=== PATIENT | male | born 1995 | race Hispanic/Latino ===

== ENCOUNTER 2025-06-09 18:07 | Emergency (ER) | payer SELFPAY ==
[~2025-06-09] VITALS: Ht 172.7 cm; Wt 120.2 kg
--- NOTE | 2025-06-09 18:40 | EKG ---
[facility] Test Date: 2025-06-09 Test Time: 18:36:51 Pat Name: KAELA HAWTHORNE Department: [facility] Room: Gender: M [employer]: [facility] : 1995 Requested By: JENNIFER HALL Order Number: [id number] Reading MD: Ziggy Archer Measurements Intervals [place] Rate: 118 P: 79 MD: 187 QRS: 28 QRSD: 89 T: 24 QT: 314 QTc: 441 Interpretive Statements Sinus tachycardia No previous ECG available for comparison Electronically Signed On 06-09-2025 19:01:26 CDT by Ziggy Archer Please click the below link to view image of tracing.
--- NOTE | 2025-06-09 18:45 | ERN ---
ED Note History of Present Illness Stated Complaint: BODY NUMBNESS,SOB,ABD PAIN Chief Complaint: Anxiety/Panic Attack Time Seen by MD: 18:09 Time Seen by Midlevel: 18:09 Dictation: The patient is a 29-year-old male with a history of hypertension who presents to the emergency department with multiple complaints of upper abdominal pain, shortness of breath, generalized tingling onset 5:00 p.m.. Patient denies any nausea, vomiting, diarrhea, fevers, constipation. Reports last bowel movement t his morning. Patient reports feeling very anxious. Allergies: Coded Allergies: No Known Drug Allergies (Unverified Allergy, Unknown, 06/09/25) Past Medical History Past Medical History: Anxiety Surgical History: None RN Note Reviewed/Agreed w/PFSH: Yes Review of System Dictation Constitutional: Negative for fever,chills, and weight loss Eyes: Negative for injury, pain,redness, and discharge ENT: Negative for injury,pain or swelling Cardiovascular: Negative for chest pain, palpitations, and edema Respiratory: Negative for cough, and wheezing, positive for shortness of breath Abdomen/GI: Negative for , nausea, vomiting, diarrhea, and constipation positive for abdominal pain Back: Negative for injury and pain : Negative for injury, bleeding and discharge MS/Extremity: Negative for injury and deformity Skin: Negative for rash, and discoloration Neuro: Negative for headache, weakness, numbness, tingling, and seizure Psych: Negative for suicide ideation, homicidal ideation, and hallucinations Initial Vital Sign VS Vital Signs Date Time Temp Pulse Resp B/P (MAP) Pulse Ox O2 Delivery O2 Flow Rate FiO2 06/09/25 18:30 98.6 92 18 154/84 98 Physical Exam Dictation Vital Signs reviewed General Appearance: Alert, oriented x 3, no acute distress, well developed, nourished. Head and Face: non-traumatic. Eyes: PERRL, pink conjunctivas, eyelid no trauma, anterior chamber with arcus senilis. Ears: Pinnas intact and no signs of trauma or erythema ear canals clear and no discharge TM no erythema Nose: No discharge, no bleeding. Oropharynx: Mouth normal, tongue pink. pharynx clear,no erythema, tonsils no exudates, no abscesses noted, mucous membrane moist Neck: Supple, non-tender, no thyromegaly, no masses, no JVD, no bruits Breast:Deferred Chest:No tenderness, no crepitus, no paradoxical movement, no retractions Lungs:Clear, well-ventilated, symmetric, no rales, no wheezing, no rhonchi, no stridor, good breath sounds bilaterally Heart: Regular rate, regular rhythm, no murmur, no gallops Vascular: no peripheral edema, Abdomen: Soft, positive bowel sounds, nondistended, no guarding, nontender, no rebound, no masses no hepatomegaly, no splenomegaly, no Saba's sign, no hernias. Rectal: Deferred Genital: Deferred Neurological: Normal speech, motor function intact, sensory function intact Musculoskeletal: Neck nontender, full range of motion, back nontender, full range of motion, Extremities: nontender, full range of motion Skin: Color pink, dry, no turgor, no rash, no lacerations, no abrasions, no contusions. Lymphatic: Deferred Results (Laboratory/Radiology) Laboratory/Radiology Laboratory Tests Test 06/09/25 18:40 06/09/25 18:46 Urine Color YELLOW (YELLOW) Urine Appearance CLEAR (CLEAR) Urine pH 5.5 (5.0-8.0) Urine Specific [place] 1.030 (1.001-1.031) Urine Protein 20 mg/dL (NEGATIVE) H Urine Glucose (UA) NEGATIVE mg/dL (NEGATIVE) Urine Ketones NEGATIVE mg/dL (NEGATIVE) Urine Occult Blood NEGATIVE (NEGATIVE) Urine Nitrate NEGATIVE (NEGATIVE) Urine Bilirubin NEGATIVE mg/dL (NEGATIVE) Urine Urobilinogen 0.2 mg/dL (0.2-1.0) Urine Leukocyte Esterase NEGATIVE Chris/uL Urine RBC 2-5 /HPF (0-1) H Urine WBC 2-5 /HPF (0-1) H Urine Squamous Epithelial Cells RARE /HPF (0-2) Urine Bacteria None /HPF (None Seen) Urine Opiates Screen NEGATIVE (NEGATIVE) Urine Barbiturates Screen NEGATIVE (NEGATIVE) Urine Phencyclidine Screen NEGATIVE (NEGATIVE) Urine Amphetamines Screen NEGATIVE (NEGATIVE) Urine Benzodiazepines Screen NEGATIVE (NEGATIVE) Urine Cocaine Screen NEGATIVE (NEGATIVE) Urine Marijuana (THC) Screen NEGATIVE (NEGATIVE) White Blood Count 13.4 K/uL (4.8-10.8) H Red Blood Count 4.85 MIL/uL (4.50-6.20) Hemoglobin 14.5 g/dL (14.0-18.0) Hematocrit 41.5 % (42-54) L Mean Corpuscular Volume 85.6 fL (79-99) Mean Corpuscular Hemoglobin 29.9 pg (27.0-33.0) Mean Corpuscular Hemoglobin Concent 34.9 g/dL (32.0-36.0) Red Cell Distribution Width 13.2 % (11.0-15.5) Platelet Count 335 K/uL (130-400) Mean Platelet Volume 11.6 fL (7.5-10.5) H Immature Granulocyte % (Auto) 0.4 % (0-1) Neutrophils (%) (Auto) 66.0 % (40.0-77.0) Lymphocytes (%) (Auto) 26.8 % (21.0-51.0) Monocytes (%) (Auto) 5.7 % (3.0-13.0) Eosinophils (%) (Auto) 0.7 % (0.0-8.0) Basophils (%) (Auto) 0.4 % (0.0-5.0) Neutrophils # (Auto) 8.9 K/uL (1.8-7.7) H Lymphocytes # (Auto) 3.6 K/uL (1.0-4.8) Monocytes # (Auto) 0.8 K/uL (0.1-1.0) Eosinophils # (Auto) 0.10 K/uL (0.00-0.70) Basophils # (Auto) 0.06 K/uL (0.00-0.20) Absolute Immature Granulocyte (auto 0.05 K/uL (0-1) Nucleated Red Blood Cells 0.0 % (0.0-0.19) Sodium Level 138 mmol/L (136-145) Potassium Level 3.3 mmol/L (3.5-5.1) L Chloride Level 103 mmol/L (101-111) Carbon Dioxide Level 27 mmol/L (21-32) Blood Urea Nitrogen 14 mg/dL (7-18) Creatinine 0.8 mg/dL (0.5-1.3) Glomerular Filtration Rate Calc 123 mL/min (>90) Random Glucose 127 mg/dL (70-105) H Total Calcium 9.4 mg/dL (8.5-10.1) Total Bilirubin 0.3 mg/dL (0.2-1.0) Direct Bilirubin 0.1 mg/dL (0.0-0.3) Aspartate Amino Transf (AST/SGOT) 21 U/L (10-37) Alanine Aminotransferase (ALT/SGPT) 33 U/L (12-78) Alkaline Phosphatase 91 U/L (50-136) Total Creatine Kinase 443 U/L (21-232) *H Troponin I High Sensitivity < 4 ng/L (4-75) L Total Protein 8.5 g/dL (6.0-8.3) H Albumin 4.2 g/dL (3.5-5.0) Lipase 23 U/L (16-77) REASON: sob ORDERING PHYSICIAN: JENNIFER HALL PROCEDURE: CXR1VW - CHEST 1VW EXAM: CR Chest, 1 View. CLINICAL HISTORY: sob COMPARISON: None provided. FINDINGS: LUNGS: The lungs show no infiltrate or other acute finding. PLEURAL SPACES: No pleural effusion or pneumothorax. MEDIASTINUM: The cardiomediastinal silhouette is within normal limits. BONES: No aggressive appearing osseous lesion seen. IMPRESSION: No acute cardiopulmonary pathology is evident. Labs Reviewed?: Yes EKG: (+) rhythm (Sinus tachycardia) EKG Comment: Date:06/09/2025 Time:1836 Ventricular rate:118 [place] interval:187 QRS duration:89 QT/QTc:314/441 EKG interpretation: Sinus tachycardia Reviewed by ED Attending no STEMI ED Course ED Course Orders Procedure Category Date Status Time Cbc With Differential LAB 06/09/25 Complete 18:28 Troponin I High LAB 06/09/25 Complete Sensitivity 18:28 Urinalysis Profile LAB 06/09/25 Complete 18:28 12 Lead Ekg Tracing- EKG 06/09/25 Resulted Technical 18:28 Creatine Kinase, Total LAB 06/09/25 Complete 18:28 Chest 1vw RAD 06/09/25 Resulted 18:28 Lipase LAB 06/09/25 Complete 18:28 Basic Metabolic Panel LAB 06/09/25 Complete 18:28 Hepatic Function Panel LAB 06/09/25 Complete 18:28 Hydroxyzine 25mg Tab PHA 06/09/25 Complete (Atarax 25mg Tab) 18:30 Drug Screen Urine LAB 06/09/25 Complete 18:28 0.9%Nacl 1000ml (Ns PHA 06/09/25 Complete 1000ml) 19:30 Potassium Bicarb/Cit PHA 06/09/25 Complete Ac 25meq (K-Lyte Ta 19:30 Current Medications Medications (Trade) Dose Ordered Sig/Shane Route PRN Reason Start Time Stop Time Status Last Admin Dose Admin Hydroxyzine HCl (ATArax 25MG TAB) 25 mg ONCE ONCE PO 06/09/25 18:30 06/09/25 18:34 DC 06/09/25 19:16 Potassium Bicarbonate (K-Lyte Tablet Eff 25 Meq Tablet.eff) 25 meq ONCE ONCE PO 06/09/25 19:30 06/09/25 19:31 DC 06/09/25 19:47 Sodium Chloride 1,000 ml @ 0 mls/hr ONCE ONCE IV 06/09/25 19:30 06/09/25 19:31 DC 06/09/25 19:47 Vital Signs Date Time Temp Pulse Resp B/P (MAP) Pulse Ox O2 Delivery O2 Flow Rate FiO2 06/09/25 18:30 98.6 92 18 154/84 98 Medical Decision Making MDM The patient is a 29-year-old male with a history of hypertension who presents to the emergency department with multiple complaints of upper abdominal pain, shortness of breath, generalized tingling onset 5:00 p.m.. Patient denies any nausea, vomiting, diarrhea, fevers, constipation. Reports last bowel movement this morning. Patient reports feeling very anxious. Showed mild leukocytosis, no anemia, chemistry showed mild hypokalemia, no electrolyte imbalance, slightly elevated CK level, negative troponin, negative lipase, urinalysis and drug screen negative. Patient received a L of IV fluids. Patient reports she feels better after medication treatment. On physical exam patient is in no acute distress. During 1st assessment patient seen very anxious, but now appears calm. Patient with a nontender abdomen to palpation. Patient with a nausea vomiting diarrhea or fevers, no upper respiratory symptoms. Patient we will be discharged to follow up with PCP. Differential diagnosis: Anxiety, gastritis, gastroenteritis, electrolyte imbalance, ACS Need for hospitalization: Patient does not meet criteria for hospitalization. There are no social concerns with this patient. DX & DISP Disposition: Discharge Departure Impression: Primary Impression: Anxiety Additional Impressions: Mild dehydration, Hypokalemia, Elevated CK Condition: Stable Scripts Hydroxyzine HCl (Hydroxyzine HCl) 25 Mg Tablet 1 TAB PO BID for anxiety for 30 Days, #60 TAB 0 Refills Prov: JENNIFER HALL 06/09/25 Additional Instructions: Please follow up with your primary doctor in 1-2 days. Take your medications as prescribed. Continue oral hydration at home. It is important that if you working outside you keep herself hydrated. If anything worsens please return to ER. FOLLOW-UP WITH PRIMARY CARE PROVIDER IN 1 TO 2 DAYS. TAKE MEDICATIONS DIREC DELON HERE IN THE EMERGENCY ROOM. OKAY TO CONTINUE HOME MEDICATIONS UNLESS OTHERWISE DISCUSSED DURING YOUR VISIT IN THE EMERGENCY ROOM TODAY. RETURN TO YOUR NEAREST EMERGENCY ROOM IF SYMPTOMS WORSEN OR IF THERE IS NO IMPROVEMENT. CALL 911 IF YOU NEED IMMEDIATE ASSISTANCE. TAKE TYLENOL [id number] NEEDED AND IF NO CONTRAINDICATIONS ARE PRESENT. INCREASE ORAL HYDRATION. A WOUND CULTURE OR URINE CULTURE WAS ORDERED HERE IN THE EMERGENCY ROOM DEPARTMENT PLEASE FOLLOW-UP WITH PRIMARY CARE PROVIDER AND ADVISE THEM TO GET REPEAT PORTS FROM OUR FACILITY. IF YOU HAD ANY JEFF WRAP/SPLINTS THAT WERE APPLIED HERE, PLEASE DO NOT REMOVE THEM UNTIL YOU SEE YOUR PRIMARY CARE OR SPECIALTY. Referrals: SELF,REFERRAL (PCP) Time of Disposition: 20:43 I have reviewed the case, and I agree with, Diagnosis and Plan JENNIFER HALL Jun 09, 2025 18:45
[2025-06-09 18:52] LABS: IMMATURE GRANULOCYTE ABSOLUTE 0.05 K/uL (0-1); NUCLEATED RED BLOOD CELLS 0.0 % (0.0-0.19); PLATELET COUNT (AUTO) 335 K/uL (130-400); RED BLOOD CELL COUNT(AUTO) 4.85 MIL/uL (4.50-6.20); RED CELL DISTRIBUTION WIDTH 13.2 % (11.0-15.5); WHITE BLOOD COUNT (AUTO) 13.4 K/uL (4.8-10.8)
[2025-06-09 18:59] LABS: APPEARANCE,URINE CLEAR (CLEAR); GLUCOSE, URINE (UA) NEGATIVE (NEGATIVE); LEUKOCYTE ESTERASE ,URINE NEGATIVE Leu/uL (NEGATIVE); NITRATE,URINE NEGATIVE (NEGATIVE); OCCULT BLOOD,URINE NEGATIVE (NEGATIVE)
[2025-06-09 19:01] LABS: ADD UA MICROSCOPIC YES
[2025-06-09 19:02] LABS: CREATININE 0.8 mg/dL (0.5-1.3); GLOMERULAR FILTR. RATE CALC 123.0 mL/min (>90); GLUCOSE,RANDOM 127.0 mg/dL (70-105); SODIUM SERUM 138.0 mmol/L (136-145); UREA NITROGEN, BLOOD 14.0 mg/dL (7-18)
[2025-06-09 19:02] LABS: SQUAMOUS EPITHELIAL CELL,UR RARE /HPF (0-2)
[2025-06-09 19:06] LABS: AMPHET/METH SCREEN,URINE NEGATIVE (NEGATIVE); BARBITURATE SCREEN, URINE NEGATIVE (NEGATIVE); CANNABINOID SCREEN,URINE NEGATIVE (NEGATIVE); COCAINE SCREEN,URINE NEGATIVE (NEGATIVE)
[2025-06-09 19:15] LABS: ASPARTATE AMINOTRANSFERASE 21.0 U/L (10-37); TOTAL PROTEIN, SERUM 8.5 g/dL (6.0-8.3)
[2025-06-09 19:18] LABS: CREATINE KINASE, TOTAL 443.0 U/L (21-232)
[2025-06-09] MEDS: 0.9%NACL 1000ML 1,000 ML IV ONE (19:47)
--- NOTE | 2025-06-09 20:32 | HMCIMG ---
EXAM: CR Chest, 1 View. CLINICAL HISTORY: sob COMPARISON: None provided. FINDINGS: LUNGS: The lungs show no infiltrate or other acute finding. PLEURAL SPACES: No pleural effusion or pneumothorax. MEDIASTINUM: The cardiomediastinal silhouette is within normal limits. BONES: No aggressive appearing osseous lesion seen. IMPRESSION: No acute cardiopulmonary pathology is evident. /[place]
[2025-06-09] MEDS ORDERED: HYDR-3421 PO (20:44)
[2025-06-09 20:59] VITALS: BP 148/79; PULSE 89; RESP 18; TEMP 98.5; O2SAT 99
== END 2025-06-09 21:00 | disposition home or self-care (01) ==
LOC: EDH 18:07
DX: F41.9 Anxiety disorder, unspecified (principal); E86.0 Dehydration; E87.6 Hypokalemia; R74.8 Abnormal levels of other serum enzymes
CPT/HCPCS: 99285; 71045; 82550; 80076; 84484; 80048; 80305; 83690; 85025; 36415; 93005; 81001; J7030